=== PATIENT | female | born 1965 | race Caucasian/White ===

== ENCOUNTER 2019-11-24 22:02 | Inpatient (IN) | payer OTHER, SELFPAY ==
--- NOTE | 2019-11-24 22:05 | W.ED.LOWEXIN ---
HPI - Extremity Injury (Lower) General: Chief Complaint: Extremity Injury, Lower Stated Complaint: HIP PAIN Time Seen by Provider: 11/24/19 22:03 Source: patient Mode of arrival: ambulatory Limitations: no limitations History of Present Illness: HPI Narrative: Patient comes in today for complaints of injury to the right hip. Patient reports she went to get up out of bed and she stood up and her hip just gave away. Patient was brought in by ambulance for inability to stand on the hip. Patient appears well. Patient reports history of asthma and hypertension. Patient denies any other chronic illnesses. complaint: hip injury Review of Systems General: Reports: 10 or more systems reviewed and unremarkable except in HPI and below Musc: Reports: joint pain PFSH ED PFSH: Social History Smoking and tobacco status: never smoked Physical Exam Const: COMMON NORMALS: no acute distress and patient oriented x3 GENERAL APPEARANCE: cooperative HENMT: COMMON NORMALS: normocephalic, TM's normal bilaterally and Normal external nose present HEAD & SCALP: normal to inspection and normocephalic NOSE: Normal external nose present TYMPANIC MEMBRANE: TM's normal bilaterally MOUTH: Normal oral and palatal mucosa present THROAT: posterior oropharynx normal Eye: GENERAL EYE: appearance normal, both eyes and all related structures Neck/C-Spine: COMMON NORMALS: full ROM Lymph: LYMPHATIC: no lymphadenopathy noted Chest: COMMONS NORMALS: normal inspection of the chest Resp: COMMON NORMALS: normal respiratory effort EFFORT & INSPECTION: Yes able to speak in complete sentences Cardio: COMMON NORMALS: regular rate and regular rhythm RATE: regular rate RHYTHM: regular rhythm GI: COMMON NORMALS: non-tender : COMMON NORMALS: Yes no CVA tenderness BLADDER/KIDNEY EXAM: Yes no CVA tenderness Back/Pelvis: COMMON NORMALS: no CVA tenderness and thoracic and lumbar spine normal to inspection GENERAL BACK: Yes other (Palpation of the lower back elicited no pain.) Extremity: NARRATIVE EXTREMITY EXAM: Patient is unable to tolerate movement of the right lower extremity. Pulses are intact in the extremity. Tenderness is noted to the right groin. Neuro: COMMON NORMALS: patient oriented x3 and moves all extremities Psych: COMMON NORMALS: mental status grossly normal and cooperative Skin: COMMON NORMALS: no rashes or lesions noted GENERAL SKIN EXAM: no rashes or lesions noted Course ED course: 2249, x-ray was completed noted a femoral neck fracture on the x-ray discussed with with Dr. Small who recommended talking to orthopedics for consideration of surgical repair and admission. wjw [id number], discussed with Dr. Fernandez who agreed to consult on patient for repair of the right hip, femoral neck fracture. Dr. Small had talked with Dr. Clemens who agreed for admission. wjw Vital Signs: Vital signs: Vital Signs Temperature 97.8 F 11/24/19 22:07 Pulse Rate 93 11/24/19 22:30 Respiratory Rate 16 11/24/19 22:30 Blood Pressure 147/73 11/24/19 22:30 Pulse Oximetry 98 11/24/19 22:30 MDM - Extremity Injury (Lower) MDM Narrative: Medical decision making narrative: Patient comes in today for complaints of injury to her right hip. Patient reported that she tripped over a bag of fertilizer when she was pulling a chair backwards causing her to land on her left hip. Patient was unable to stand after the injury. And was transported to the ER by EMS. On exam patient has right groin tenderness on palpation, no pain of the lumbar spine on palpation. Distal pulses are intact and no significant swelling is noted to the distal leg. Patient is unable to lift leg from bed. Differential diagnosis includes fracture of the hip, contusion, sprain. X-ray showed a femoral neck fracture that is displaced. Patient needs admission to the hospital for surgical treatment of fracture. Reviewed this with patient who agreed to plan of care. 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
[2019-11-24 22:07] VITALS: BP 130/100; RESP 18; TEMP 36.6; BMI 23.4
--- NOTE | 2019-11-24 22:10 | XR_ITS ---
WS: [id number] PELVIS AND RIGHT HIP HISTORY: injury COMPARISON: 11/24/2019 CT. Right hip: Acute fracture involving the basicervical portion of the femoral neck with extension to th e subcapital region. There is mild impaction along the fracture line but otherwise no displacement. T here is mild increased lucency along the fracture site. No additional lytic areas are noted within the pelvis. XR/XR hip RT 2-3V wo/w pel* [id number] IMPRESSION: 1. Acute RIGHT femoral neck fracture involving the basicervical region and the subcapital region. Mild impaction. 2. Increased lucency along the superior fracture site. Lytic lesion is not exc luded. Evaluation for possible metastatic lesion should be considered.
[2019-11-24 22:30] VITALS: BP 147/73; PULSE 93; RESP 16; O2SAT 98
[2019-11-24] MEDS: ondansetron 2 mg/ML SDV 2 mL 4 MG IVP (22:45)
[2019-11-24] MEDS: morphine 4 mg/mL SDV 1 mL IVP ×2 (22:46→23:39)
--- NOTE | 2019-11-24 22:56 | ECG_ITS ---
Measurements Intervals [place] Rate: 88 P: 52 IL: 158 QRS: -3 QRSD: 93 T: 28 QT: 344 QTc: 416 SINUS RHYTHM No previous ECG available for comparison Electronically Signed On 11-25-2019 10:30:27 CDT by Bill Lopez MD [email or web address]
--- NOTE | 2019-11-24 22:56 | XR_ITS ---
WS: [id number] PORTABLE CHEST HISTORY: hip fracture COMPARISON: None available. Mild pulmonary hyperinflation. No pneumonia. Normal vasculature. No pleural effusion or pneumothorax. Cardiac size: Normal. Mediastinum/Aorta: Normal mediastinum. No osseous abnormality seen. XR/XR chest 1V portable [id number] IMPRESSION: Mild pulmonary hyperexpansion may be related to emphysema.
[2019-11-24 23:28] LABS: Basophils # 0.1 10^3/uL (0.0-0.1); Basophils % 0.5 %; Eosinophils # 0.2 10^3/uL (0.0-0.8); Eosinophils % 0.8 %; Hematocrit 43.2 % (37.0-47.0); Hemoglobin 13.4 g/dL (11.5-15.3); Lymphocytes # 2.1 10^3/uL (0.8-4.8); Lymphocytes % 11.7 %; Mean Corpuscular Hemoglobin 30.5 pg (28.0-34.0); Mean Corpuscular Volume 98.4 fL (81-99); Mean Platelet Volume 9.3 fL (7.4-10.4); Monocytes % 5.5 %; Neutrophils # 14.3 10^3/uL (1.8-7.7); Neutrophils % 80.7 %; Nucleated Red Blood Cells % 0 %; Platelet Count 345 10^3/cmm (130-400); Red Blood Count 4.39 10^6/uL (4.1-5.3); Red Cell Distribution Width 13.2 % (12.1-15.1); White Blood Count 17.8 10^3/uL (4.0-10.0)
--- NOTE | 2019-11-24 23:38 | PC.NURSE ---
care and report given to Hollis SANCHEZ
--- NOTE | 2019-11-24 23:41 | CTR_ITS ---
PROCEDURE INFORMATION: Exam: CT Right Lower Extremity Without Contrast, Hip Exam date and time: 11/24/2019 11:42 PM Age: 54 years old Clinical indication: Injury or trauma; Initial encounter; Blunt trauma; Right; Patient HX: Backwards fall - R hip FX TECHNIQUE: Imaging protocol: CT of the Right lower extremity without contrast was performed. Exam focused on the hip. Radiation optimization: All CT scans at this facility use at least one of these dose optimization techniques: automated exposure control; mA and/or kV adjustment per patient size (includes targeted exams where dose is matched to clinical indication); or iterative reconstruction. COMPARISON: CR XR hip RT 2-3V wo/w pel* [id number] 11/24/2019 10:33 PM RADIATION DOSE METRICS: Total DLP: 1142.42 mGy-cm FINDINGS: Bones/joints: There is a displaced right femoral neck fracture involving the subcapital portion of the neck posteriorly, extending through the basicervical portion anteriorly. The femoral head remains aligned with the intact acetabulum. The visible portion of the pelvis and sacrum is intact. Soft tissues: Visible intrapelvic soft tissues are unremarkable. No significant hematoma in the right thigh. CT/CT hip RT wo con* [id number] IMPRESSION: Displaced fracture of the right femoral neck. Radiation Dose CTDIVOL = (mGy): DLP = 1142.42 (mGy-cm)
[2019-11-24 23:43] VITALS: O2SAT 98
[2019-11-24 23:45] VITALS: BP 127/73
[2019-11-24 23:51] VITALS: BP 127/73
[2019-11-24 23:55] VITALS: BP 127/73
[2019-11-25] VITALS (34 sets, daily range): BP systolic 95–141; BP diastolic 59–88; PULSE 77–118; RESP 12–21; TEMP 36.4–36.9; O2SAT 89–100
[2019-11-25 00:38] LABS: Alanine Aminotransferase 17 U/L (0-33); Albumin Level 4.2 g/dL (3.5-5.2); Alkaline Phosphatase 100 IU/L (35-105); Anion Gap 18.3 (5-19); Blood Urea Nitrogen 15 mg/dL (6-20); Calcium 9.9 mg/dL (8.5-10.5); Carbon Dioxide 24 mmol/L (22-29); Chloride 97 mmol/L (98-107); Globulin 3.1 g/dL (1.3-4.6); Glomerular Filtration Rate 103.8 mL/min (90-130); Glucose 133 mg/dL (65-115); Osmolality Calculated 278 mOsm/kg (285-295); Potassium 4.3 mmol/L (3.5-5.1); Sodium 135 mmol/L (136-145); Total Bilirubin 0.2 mg/dL (0.15-1.2); Total Protein 7.3 g/dL (6.6-8.7)
[2019-11-25 00:39] LABS: Aspartate Amino Transferase 24 U/L (0-32)
--- NOTE | 2019-11-25 03:14 | P.HP_ITS ---
Providers/Chief Complaint Admitting Physician: Zita Hagan MD Chief Complaint: R CERVICAL FEMORAL NECK FX History of Present Illness Patti Saleh is a 54 year old female with PMH HTN and asthma who presented today to the hospital after suffering a mechanical fall at home when she tripped over some fertilizer bags. She was then unable to move her right leg. Hip X ray and CT show displaced fracture of the right femoral neck. she denies any c/o cough, chest pain, dyspnea, fever, nausea, vomiting or diarrhea, denies dysuria. Review of Systems General: Reports: 10 or more systems reviewed and unremarkable except in HPI and below Const: Denies: fever(s), chills or body aches Eyes: Denies: change in vision, blurry vision or photophobia ENMT: Denies: throat pain, enlarged tonsils, odynophagia, hoarseness or nasal congestion Card: Denies: chest pain, palpitations, irregular heart rhythm, edema, sw elling of feet/ankles, lightheadedness, pre-syncope, dyspnea on exertion or orthopnea Resp: Denies: dyspnea, productive cough, non-productive cough, wheezing, stridor, pain on inspiration, change in phlegm color, hemoptysis or chest congestion GI: Denies: abdominal pain, nausea, vomiting, hematemesis, coffee ground emesis, dysphagia, heartburn, diarrhea, constipation, GI cramping, change in stool character, hematochezia or melena : Denies: flank pain, difficulty voiding, dysuria, urinary frequency, urinary urgency, urinary hesitancy or hematuria Musc: Denies: neck pain, back pain, extremity pain, joint swelling, joint warmth or deformity Neuro: Denies: headache(s), numbness in extremities, weakness in extremities, sensory changes, difficulty walking, frequent falls, dizziness, vertigo, behavioral changes, Slurred speech present or seizure-like activity Psych: Denies: anxiety, depression, suicidal ideation or homicidal ideation Endo: Denies: polyuria, polydipsia, tired all the time, cold intolerance or hot flashes Chris/Lymph: Denies: easy bruising or easy bleeding Medications/Allergies Home Medications Medication Instructions Recorded Confirmed Last Taken Type Advair HFA 1 puff INHALATION DAILY 11/25/19 11/25/19 11/24/19 History cetirizine 10 mg PO DAILY 11/25/19 11/25/19 11/24/19 History lisinopril-hydrochlorothiazide 10 mg PO DAILY 11/25/19 11/25/19 11/24/19 History sertraline 50 mg PO DAILY 11/25/19 11/25/19 11/24/19 History Allergies Allergy/AdvReac Type Severity Reaction Status Date / Time No Known Allergies Allergy Verified 11/24/19 22:11 PFSH Acute PFSH: Social History Smoking and tobacco status: never smoked Vitals/I&O/Wt Last Vital Signs Temp 98.5 F 11/25/19 01:15 Pulse 84 11/25/19 01:15 Resp 18 11/25/19 01:15 BP 126/74 11/25/19 01:15 Pulse Ox 98 11/25/19 01:15 Weight last 48 hrs Weight 69.853 kg Physical Exam Narrative: EXAM NARRATIVE: GEN: Awake, alert and oriented, no acute distress CVS: S1S2 N RS: CTA B/L Abd: Soft, nt/nd , bs+ APPRENTICE JOCKEY: no focal neuro deficits Ext: TTP over right hip joint, no distal neurovascular deficits Urinary Catheter Management^: Kelly: Cath Placed During This Visit: yes Reason for Continuing Indwelling Catheter: Perioperative Use in Selected Surger ies Urinary Catheter Date of Insertion: 11/25/19 Urinary Catheter Time of Insertion: 00:43 Data : 11/24/19 23:10 11/25/19 00:01 A&P Assessment and plan (1) Fracture of hip: Status: Acute Qualifiers: Encounter type: initial encounter Fracture type: closed Laterality: right Qualified Code(s): S72.001A - Fracture of unspecified part of neck of right femur, initial encounter for closed fracture (2) Leukocytosis: Status: Acute (3) Hypertension: Status: Acute Additional A&P Information Admit to med/surg 1. Fracture of right femoral neck - sustained from mechanical fall - PAin is currently well controlled -prn morphine and ibuprofen for pain control -Orthopedics consult with Dr. Valentino 2. Hypertension: Patient does not recall name of her medications, will try to obtain from her family 3. leukocytosis, in the absence of fever or any other localizing signs or symptoms of infection likely related to stress response from acute fracture. CXR is without infiltrates. Will check UA. Surgical prophylaxis per orthopedics team 4. H/o asthma, not currently exacerbated. Prn albuterol inhaler Full code DVT ppx: heparin, hold prior to surgery Attestations Medical Necessity Statement*: Anticipate >2 midnight admission for hip fracture and surgical repair Coding Level of Care Code Acute Community Health Educator for [facility] Diagnoses Fracture of hip S72.001A Encounter type: initial encounter Fracture type: closed Laterality: right Leukocytosis D72.829 Hypertension I10
[2019-11-25 03:45] LABS: Add Urine Microscopic? NO
[2019-11-25] MEDS: dextrose 5%-sod chloride 0.9% 1,000 ML 75 ML IV (03:45)
[2019-11-25] MEDS: morphine 4 mg/mL SDV 1 mL 2 MG IVP (03:45)
[2019-11-25 03:48] LABS: Bilirubin Urine Neg (NEGATIVE); Blood Urine Neg (Negative); Glucose Urine UA Norm (Normal); Ketones Urine Negative (Negative); Leukocyte Esterase Urine Negative (Negative); Nitrate Urine Negative (Negative); Protein Urine Neg (Negative); Specific Gravity, Urine 1.005 (1.005-1.030); Urine Appearance Clear (CLEAR); Urine Color Yellow (Yellow); Urobilinogen Urine Norm (Negative); pH Urine 7 (5-7)
--- NOTE | 2019-11-25 03:51 | PC.NURSE ---
verified home meds with spouse. Given morphine 2 mg at this time for pain verified fluid order with jacques mas.
--- NOTE | 2019-11-25 08:03 | P.ANESASSM_ITS ---
Pre-Anesthetic Assessment Pre-Anesthetic Assessment: Height/Weight: Height 1.73 m Weight 69.853 kg Temp Pulse Resp BP Pulse Ox 98.5 F 94 18 109/68 95 11/25/19 07:09 11/25/19 07:09 11/25/19 07:09 11/25/19 07:09 11/25/19 07:09 Proposed Procedure: Operation Date: 11/25/19 08:45 Proposed Procedures p Hemiarthroplasty Hip(Right) - Kavita Valentino MD Last intake: Intake Last Liquid Date 11/24/19 Last Solid Date 11/24/19 Social: Social History: No alcohol and No tobacco Exam: Pre-Anes Outpt Exam: alert, oriented x 3, clear to auscultation bi laterally and regular rate & rhythm Airway: Submandibular: WNL Cervical ROM: WNL MP: 2 Dentition: Other (teeth ok) History/ROS: No significant history except as noted Pulmonary: Pulmonary: Asthma (mod) and GIL CV/HEM: CV/HEM: HTN : : None reported Hepatic: Hepatic: None reported GI: GI: None reported Metabolic: Metabolic: None reported Musc/skel: Musc/skel: None reported Neuropsych: Neuropsych: Depression Anesthetic Plan: ASA status: 2 Anesthesia: Anesthesia Evaluation and General Risk of > 500 ml blood loss (7ml/kg in children): Yes, adequate IV access and fluids planned Meds/Allergies Current Medications: Current Medications Generic Name Dose Route Start Last Admin Trade Name Freq PRN Reason Stop Dose Admin Dextrose/Sodium Ch loride 1,000 mls @ 75 ml s/hr 11/25/19 03:15 11/25/19 03:45 Dextrose 5%-Sod Chloride 0.9% IV 75 mls/hr .[id number] GEE Administration Morphine Sulfate 2 mg 11/25/19 03:06 11/25/19 03:45 Morphine IVP 2 mg Q4H PRN Administration SEVERE PAIN PFSH Anesthesia PFSH: Medical History (Updated 11/25/19 @ 08:13 by Kavita Valentino MD) Asthma Hypertension Social History Smoking and tobacco status: never smoked Data Anesthesia CBC & Chem 7: 11/24/19 23:10 11/25/19 00:01 Other Labs: Laboratory Results - last 48 hr 11/24/19 11/25/19 11/25/19 23:10 00:01 01:20 WBC 17.8 H RBC 4.39 Hgb 13.4 Hct 43.2 MCV 98.4 MCH 30.5 MCHC 31.0 RDW 13.2 Plt Count 345 MPV 9.3 Neut % (Auto) 80.7 Lymph % (Auto) 11.7 [place] % (Auto) 5.5 Eos % (Auto) 0.8 Baso % (Auto) 0.5 Neut # (Auto) 14.3 H Lymph # (Auto) 2.1 [place] # (Auto) 1.0 H Eos # (Auto) 0.2 Baso # (Auto) 0.1 Nucleated RBC % (auto) 0 Nucleated RBCs # 0.0 Sodium 135 L Potassium 4.3 Chloride 97 L Carbon Dioxide 24 Anion Gap 18.3 BUN 15 Creatinine 0.6 GFR Calculation 103.8 Glucose 133 H Calculated Osmolality 278 L Calcium 9.9 Total Bilirubin 0.2 AST 24 ALT 17 Alkaline Phosphatase 100 Total Protein 7.3 Albumin 4.2 Globulin 3.1 Urine Color Yellow Urine Appearance Clear Urine pH 7 Ur Specific [place] 1.005 Urine Protein Neg Urine Glucose (UA) Norm Urine Ketones Negative Urine Blood Neg Urine Nitrate Negative Urine Bilirubin Neg Urine Urobilinogen Norm Ur Leukocyte Esterase Negative Cardiac Studies: No Data to Display
--- NOTE | 2019-11-25 08:06 | PM.CONSULT ---
Providers/Reason For Consult Consulting Physican/Specialty*: Dr. Kavita Valentino - Orthopedics Reason for Consult*: Right subcapital hip fracture Requesting Physcian: Dr. Sidney Small - Emergency department Attending Physician: Zita Hagan MD History of Present Illness History of Present Illness Patti Saleh is a 54 year old female who presented to the emergency department after a fall at home. She tripped over fertilizer bags and fell onto her right side suffering the above injury. Upon admission to the emergency department, she was noted to have a past medical history consistent with asthma and hypertension without other significant past medical history. Review of Systems Const: Denies: fever(s) or chills Eyes: Denies: change in vision Card: Reports: dyspnea on exertion; Denies: chest pain Resp: Reports: dyspnea (With exertion); Denies: productive cough GI: Denies: abdominal pain Skin/Breast: Denies: erythema or changes in skin color Neuro: Denies: numbness in extremities Psych: Denies: anxiety or depression Chris/Lymph: Denies: easy bruising or easy bleeding Meds/Allergies Home Medications and Allergies Home Medications Medication Instructions Recorded Confirmed Last Taken Type Advair HFA 1 puff INHALATION DAILY 11/25/19 11/25/19 11/24/19 History cetirizine 10 mg PO DAILY 11/25/19 11/25/19 11/24/19 History lisinopril-hydrochlorothiazide 10 mg PO DAILY 11/25/19 11/25/19 11/24/19 History sertraline 50 mg PO DAILY 11/25/19 11/25/19 11/24/19 History Allergies Allergy/AdvReac Type Severity Reaction Status Date / Time No Known Allergies Allergy Verified 11/24/19 22:11 Current Medications Current Medications Generic Name Dose Route Start Last Admin Trade Name Freq PRN Reason Stop Dose Admin Dextrose/Sodium Chloride 1,000 mls @ 75 mls/hr 11/25/19 03:15 11/25/19 03:45 Dextrose 5%-Sod Chloride 0.9% IV 75 mls/hr .[id number] GEE Administration Morphine Sulfate 2 mg 11/25/19 03:06 11/25/19 03:45 Morphine IVP 2 mg Q4H PRN Administration SEVERE PAIN PFSH Acute PFSH: Medical History Asthma Depression Hypertension Social History Smoking and tobacco status: never smoked Vitals/I&O/Wt Last Vital Signs Temp 98.5 F 11/25/19 07:09 Pulse 94 11/25/19 07:09 Resp 18 11/25/19 07:09 BP 109/68 11/25/19 07:09 Pulse Ox 95 11/25/19 07:09 11/24/19 11/25/19 11/25/19 22:59 06:59 14:59 Output Total 400 / 400 Balance -400 / -400 Weight last 48 hrs Weight 154 lb Physical Exam Const: COMMON NORMALS: no acute distress, average body habitus, patient oriented x3 and alert GENERAL APPEARANCE: cooperative and comfortable ORIENTATION/CONSCIOUSNESS: Yes awake HENMT: COMMON NORMALS: normocephalic and atraumatic HEAD & SCALP: normocephalic and atraumatic Eye: GENERAL EYE: appearance normal, both eyes and all related structures Chest: COMMONS NORMALS: normal inspection of the chest Resp: COMMON NORMALS: normal respiratory effort EFFORT & INSPECTION: Yes able to speak in complete sentences and Yes symmetric chest movement Extremity: RIGHT LOWER EXTREMITY: Yes hip joint Right hip: Yes inspection (There is no significant ecchymosis.), Yes palpation (Tenderness to palpation), Yes ROM (Tender with any range of motion) and Yes neurovascular exam (Intact to sensory and motor function) Neuro: COMMON NORMALS: patient oriented x3 SENSORIUM/ORIENTATION: Yes alert Psych: COMMON NORMALS: mental status grossly normal APPEARANCE: Yes grossly normal ATTITUDE: Yes calm and Yes engaged ATTENTION/CONCENTRATION: Yes attention grossly intact Skin: COMMON NORMALS: no rashes or lesions noted GENERAL SKIN EXAM: no rashes or lesions noted Urinary Catheter Management^: Kelly: Cath Placed During This Visit: yes Reason for Continuing Indwelling Catheter: Perioperative Use in Selected Surgeries Urinary Catheter Date of Insertion: 11/25/19 Urinary Catheter Time of Insertion: 00:43 Data Imaging^: Xray Ortho: I personally reviewed and interpreted this imaging study as follows: My impression: AP pelvis and AP and lateral of the patient's right hip are reviewed. These images demonstrate a displaced subcapital hip fracture. On the AP pelvis, there is some concern of a lytic looking region or a void in the superior aspect of the neck. For this reason, I have asked for a CT scan. CT Abd/Pel: I personally reviewed and interpreted this imaging study as follows: My impression: CT scan is reviewed. The void which was visualized on the AP pelvis imaging is not apparent on the CT scan. The CT demonstrates a displaced subcapital hip fracture consistent with the x-ray findings. A&P Assessment and plan (1) Subcapital fracture of right hip: Patient fell at home with no complaints of dizziness or other reason for her fall other than a mechanical fall tripping over some fertilizer bags at her house. The patient presented to the emergency department with inability to ambulate and severe pain in the right lower extremity with any range of motion. Findings on x-ray included a displaced subcapital hip fracture. There was some irregularity along the superior border of the fracture that almost appeared to be a void. Therefore, I did order a CT scan for preoperative evaluation to assure there was not a pathological component to this fracture particularly given the patient's young age and state of health. CT scan as noted above was negative for lytic lesion, but positive for cysts subcapital hip fracture. Patient therefore was admitted to the medical service given her history of asthma, depression, and hypertension. She will undergo bipolar hip arthroplasty. Risks and complications are discussed with her. Consents were signed Status: Acute Consult Attestations Medical Necessity Statement: Patient will require inpatient admission for optimization and evaluation of her hip fracture with subsequent surgical intervention and medical management. Coding Level of Care Code Acute Animation Producer for [facility] Fwd Exam Comprehensive Diagnoses Subcapital fracture of right hip S72.011A
[2019-11-25] MEDS: CELEcoxib 200 mg Capsule 400 MG PO (08:53)
[2019-11-25] MEDS: sodium chloride 0.9% 1,000 ML 30 ML IV (08:56)
--- NOTE | 2019-11-25 09:16 | PC.CHAP ---
Pastoral Care Encounter/Spiritual Assessment Type of Contact [] Declined brisket puller visit [] Patient/Family/Request visit [] Outpatient visit [] Follow-up visit [] Physician referral [] Code/Alert [x] Routine visit [] Staff referral [] Actively dying [] Patient sleeping [] Family support [] [x] Out of room [] Palliative care [] [] Receiving care in room [] Pre-surgical visit [] Trauma [] Long length of stay [] ICU visit [] Other: Relational/Emotional Strength [] Patient feels connected with others/family/visitors/staff [] Distress [] Loneliness/isolation [] Abandonment Spirituality of Patient [] Person of Ora [] Attends Scientologist of their Ora [] Believes in Prayer [] Reads Bible or Mandaen materials [] There are Spiritual issues to be addressed Copy Chaser Interventions [] Prayer [] Active listening [] Non-anxious presence [] Spiritual/emotional support [] Crisis/trauma care [] Spiritual counseling [] Bereavement support [] Provided bereavement packet [] Provided Bible/devotional materials [] Provided toy/stuffed animal, coloring book to patient or family member [] Provided Communion [] Anointing/[place] [] Salvation [x] Completed spiritual assessment [] Other: Impact on Illness or Injury [] Angry [] Fearful [] Anxious [] Often cries [] Exhaustion [] Unable to work [] Unable to attend religion [] Unable to walk/stand [] Unable to read [] Unable to drive [] Unable to eat/drink [] Unable to sleep [] Unable to be with family [] Patient intubated [] Other: Summary Time spent with patient
[2019-11-25] MEDS: ceFAZolin 1,000 mg SDV 1000 MG IRRIGATION (09:54)
[2019-11-25] MEDS: vancomycin 1,000 MG SDV 1000 MG XX (09:56)
--- NOTE | 2019-11-25 11:03 | XR_ITS ---
WS: [id number] PELVIS: AP VIEW SUBMITTED HISTORY: Status post bipolar hip arthroplasty COMPARISON: 11/24/2019 Intraoperative RIGHT hip arthroplasty. Soft tissue changes from the recent surgery. XR/XR pelvis 1-2V* [id number] IMPRESSION: Satisfactory positioning of the RIGHT hip arthroplasty.
--- NOTE | 2019-11-25 11:05 | P.OP_ITS ---
Operative Report Date of procedure: November 25, 2019 Pre-op Diagnosis: Right Subcapital Hip Fracture Post-op diagnosis: same Post-op Findings: Subcapital displaced right hip fracture Procedure Done: Right bipolar hip arthroplasty utilizing the following components: The Wheeler Accolade II hip system with a size 5 x 127 degree neck angle hip stem and a universal bipolar head component size 45 mm outer diameter by 28 mm inner diameter a +0 offset by 28 mm femoral head Specimens removed/disposition: Femoral head sent to pathology Pathology: Femoral head sent for microscopic evaluation Surgeon: Kavita Valentino Professional Skater: [facility] OR technicians Anesthesia: General (Intubated) Estimated blood loss (mL): 100 IV fluids (mL): 1,000 Urine output (mL): 100 Complications: None Findings: Following the procedure the hip was stable to external rotation. It was stable at 90 degrees of flexion with 80 degrees of internal rotation. It was also stable to toe hang and to 90 degrees of flexion with 30 degrees of adduction and 60 degrees of internal rotation Condition: stable Disposition: PACU (Then to floor) Brief History: This 54-year-old woman was in her usual state of health when she fell in her home suffering the above injury. Patient presented to the emergency room with inability to ambulate and pain in the right hip. Images demonstrated a right subcapital hip fracture. She was admitted for definitive care. Risks and complications of surgery were discussed with the patient. She understood and consented for the above procedure. Procedure: The patient was brought to the operating theater, and after undergoing adequate general anesthesia was transferred to the operating room table. The patient was placed in the full lateral position and held in place with the pegboard. Patient's right lower extremity was draped free and was subsequently prepped and further draped free. A surgical pause was performed prior to commencement of the surgical procedure. During the surgical pause, we confirmed the site and side of surgery as well as availability of equipment. Additionally, we confirmed preoperative surgical markings and administration of preoperative prophylactic antibiotic, Ancef 2 g. X-rays are also reviewed during this time. Following the surgical pause, an incision was made centering over the greater trochanter continuing proximally and distally as necessary to allow access to the hip joint. Dissection continues to skin and soft tissue using scalpel. Incision was obtained using electrocautery. Tensor fascia anu was identified and incised longitudinally. Sciatic nerve was identified and protected throughout the surgical procedure. A Charnley U retractor was placed with care being taken to protect the sciatic nerve during placement. The hip was internally rotated. Piriformis muscle was then identified, tagged, and subsequently incised from the posterior aspect of the hip joint. The remaining short external rotators were also incised. These were then elevated off the capsule and the capsule was entered in a T-type fashion. Each side of the capsule was then tagged. The proximal femur was brought into an appropriate position of the femoral neck osteotomy was accomplished. This was in appropriate position for placement of the prosthetic component. Femoral head was then removed from the acetabulum utilizing a corkscrew. It was subsequently measured. The appropriate size trial was chosen. The size 45 mm trial fit nicely. A 46 mm as well as a 44 mm was also trialed but neither of these fit as nicely as the 45 mm. Therefore size 45 mm was the chosen size for final implantation. Femoral technical operations manager was then placed and attention was directed to the proximal femur. Initially, the proximal femur was addressed with a box chisel, and this was followed by a canal finder and subsequently broaches. The hip was broached to a size 5 Accolade II. Size 5 broach was noted to fit nicely and have good fit and fill. Therefore this was to be the chosen component. Trial reduction was accomplished with a 45 mm bipolar cup shell and a +0 mm offset femoral head. With this, the above-noted stabilities were accomplished. This was felt to be appropriate and therefore trial components were removed and the hip was irrigated. Acetabulum was evaluated for any loose bodies or other soft tissues requiring resection. We then prepared for implantation. The size 5 Accolade II 127 degree neck angle femoral stem was impacted into position. This was placed without difficulty. Onto this was placed the construct of the 45 mm outer diameter bipolar head with a 28 mm inner diameter, and the 28 mm by +0 mm offset femoral head was inserted into this outer bipolar head. This was placed onto the trunnion of the femoral component. It was impacted into position and was pulled upon to assure that there was no dissociation. Once again, the hip was irrigated and suctioned dry and was reduced. We then irrigated the hip further with 20 mL of Betadine mixed into 500 mL of normal saline. This was allowed to remain in the wound for approximately 3 minutes. It was then suctioned dry and irrigated with normal saline. This was suctioned dry again and closure was accomplished with 0 Vicryl in the capsular tissues followed by reattachment of the piriformis with 0 Vicryl. Additionally, the tensor was closed with 0 Vicryl in an interrupted fashion. Subcutaneous tissues were closed with a combination of 0 Vicryl and 2-0 Monocryl. Skin was closed with 3-0 Monocryl. This was followed by Exofin and Steri-Strips. A sterile dressing was placed consisting of Telfa and Tegaderm. The patient was returned the Recovery Room in satisfactory condition. There were no complications. The patient will be discharged to the floor for postoperative rehabilitation and pain management.
--- NOTE | 2019-11-25 11:28 | SUR.PHASEI ---
1118 PATIENT TO PACU AT THIS TIME FROM OR. RR EVEN AND UNLABORED. NASAL TRUMPET IN PLACE. SPO2 97% ON SIMPLE MASK AT 8L. DRESSING TO RIGHT HIP, CDI, RIGHT PEDAL PULSE, PALPATED AND MARKED. ABDUCTOR PILLOW IN PLACE. LUO CATH SECURED TO LEFT LEG, DRAINING CLEAR, YELLOW URINE.
--- NOTE | 2019-11-25 11:31 | SUR.PHASEI ---
1122 NASAL TRUMPET REMOVED. SPO2 98% ON SIMPLE MASK AT 8L.
[2019-11-25] MEDS: ondansetron 2 mg/ML SDV 2 mL 4 MG IVP (11:32)
--- NOTE | 2019-11-25 12:03 | SUR.PHASEI ---
1151 PATIENT TO MED SURG AT THIS TIME FROM PACU. DRESSING TO RIGHT HIP, CDI WITH FIRST ICE IN PLACE. PATIENT DENIES NAUSEA, TOLERATING ICE CHIPS. A/OX3. REPORTS PAIN SORENESS
--- NOTE | 2019-11-25 16:54 | PM.PN ---
Subjective Subjective: Interval history: She is seen and examined upon her return from the OR. Resting quietly in bed, in good spirits, abductor pillow in place, Kelly catheter with approximately 500 mL urine output. Per nursing staff seems to desaturate slightly while sleeping but compensates quickly. Currently on room air. Medications: Reviewed: Yes Medication Review Details: Active Medications Generic Name Dose Route Start Last Admin Trade Name Freq PRN Reason Stop Dose Admin Acetaminophen 1,000 mg 11/27/19 13:00 Tylenol PO Q8H GEE Albuterol Sulfate 2.5 mg 11/25/19 03:39 Albuterol INHALATION Q4H.RESPIRATORY P RN SHORTNESS OF YANETH TH Aspirin 325 mg 11/26/19 09:00 Aspirin Ec PO DAILY [facility] Calcium Carbonate 1,000 mg 11/25/19 18:00 Tums PO BID GEE Celecoxib 200 mg 11/25/19 18:00 Celebrex PO Q12H [facility] Chlorhexidine Gluc bettie 30 ml 11/25/19 13:00 11/25/19 13:31 Perigard MUCOUS MEM Not Given QID [facility] Hydrochlorothiazid e 12.5 mg 11/26/19 09:00 Hctz PO DAILY [facility] Dextrose/Sodium Ch loride 1,000 mls @ 75 ml s/hr 11/25/19 03:15 11/25/19 03:45 Dextrose 5%-Sod Chloride 0.9% IV 75 mls/hr .[id number] GEE Administration Cefazolin Sodium/D extrose 2 gm in 50 mls @ 100 mls/hr 11/25/19 17:00 Kefzol IV 11/26/19 09:29 Q8H GEE Protocol Acetaminophen 1,000 mg in 100 m ls @ 400 mls/hr 11/25/19 13:00 11/25/19 13:26 Ofirmev IV 11/26/19 05:14 400 mls/hr Q8H GEE Administration Ibuprofen 400 mg 11/25/19 03:06 Motrin PO Q8H PRN mild/mod pain or temp >/= 101 Ipratropium Bromid e 0.5 mg 11/25/19 08:31 Atrovent Neb INHALATION ONCE PRN WHEEZING Lisinopril 10 mg 11/26/19 09:00 Prinivil PO DAILY [facility] Morphine Sulfate 2 mg 11/25/19 03:06 11/25/19 03:45 Morphine IVP 2 mg Q4H PRN Administration SEVERE PAIN Multivitamins Ther apeutic 1 tab 11/26/19 09:00 Multivitamin Tab PO DAILY [facility] Mupirocin 1 applic 11/25/19 18:00 Bactroban NASAL 11/30/19 17:59 BID [facility] Naloxone HCl 0.1 mg 11/25/19 11:41 Narcan IVP Q2M PRN Respiratory rate less than 8. Ondansetron HCl 4 mg 11/25/19 01:15 Zofran IVP Q6H PRN NAUSEA AND VOMITI NG Ondansetron HCl 4 mg 11/25/19 11:41 Zofran IVP Q6H PRN NAUSEA AND VOMITI NG Oxycodone HCl 5 mg 11/25/19 11:41 Oxycodone Ir PO Q4H PRN MODERATE PAIN Polysaccharide Iro n Complex 150 mg 11/25/19 18:00 Ferrex PO BIDWM [facility] Senna/Docusate Sod ium 2 tab 11/25/19 18:00 Senna-S PO BID [facility] Sertraline HCl 50 mg 11/25/19 21:00 Zoloft PO BEDTIME [facility] Vitamin D 1,000 unit 11/26/19 09:00 Vitamin D3 PO DAILY [facility] No Known Allergies Allergy (Verified 11/24/19 22:11) Vitals/I&O/Wt Last Vital Signs Temp 97.9 F 11/25/19 15:00 Pulse 91 11/25/19 15:00 Resp 18 11/25/19 15:00 BP 115/73 11/25/19 15:00 Pulse Ox 96 11/25/19 15:00 11/25/19 11/25/19 11/25/19 06:59 14:59 22:59 Intake Total 1260 / 1260 Output Total 400 / 400 300 / 300 Balance -400 / -400 960 / 960 Weight last 48 hrs Weight 69.853 kg Physical Exam Const: COMMON NORMALS: no acute distress, patient oriented x3 and alert GENERAL APPEARANCE: cooperative and comfortable ORIENTATION/CONSCIOUSNESS: Yes awake HENMT: COMMON NORMALS: normocephalic, atraumatic, hearing grossly normal bilaterally and moist oral mucous membranes HEAD & SCALP: normocephalic and atraumatic Eye: COMMON NORMALS: Equal, round and reactive pupils present, EOMs intact bilaterally and conjunctivae normal CONJUNCTIVA: Yes conjunctivae normal PUPIL: Yes Equal, round and reactive pupils present Neck/C-Spine: COMMON NORMALS: full ROM GENERAL: Yes normal visual inspection and Yes trachea midline Chest: CHEST: Yes Symmetrical chest wall rise Resp: COMMON NORMALS: normal respiratory effort, No retractions, No use of accessory muscles and clear to auscultation bilaterally EFFORT & INSPECTION: Yes able to speak in complete sentences, Yes symmetric chest movement and No tachypneic AUSCULTATION: clear to auscultation bilaterally OTHER: -on RA Cardio: COMMON NORMALS: regular rate, regular rhythm, S1 normal heart sound present, S2 normal heart sound present and No murmurs present (Cardio) RATE: regular rate RHYTHM: regular rhythm HEART SOUNDS: S1 normal heart sound present and S2 normal heart sound present GI: COMMON NORMALS: Normal to inspection, nondistended, normoactive bowel sounds present, Soft to palpation and non-tender PALPATION: Yes Soft to palpation : BLADDER/KIDNEY EXAM: Yes catheter in place Catheter type (Female): urethral Extremity: COMMON NORMALS: normal to inspection, full ROM, no clubbing, cyanosis or edema and no pedal edema NARRATIVE EXTREMITY EXAM: -R lateral hip: clean dressing in place, soft to palpation, no hematoma -Abductor pillow in place between both lower extremities -neurovascularly intact Neuro: COMMON NORMALS: patient oriented x3, moves all extremities, no focal motor deficits and no sensory deficits noted SENSORIUM/ORIENTATION: Yes alert Psych: COMMON NORMALS: mental status grossly normal, Normal thought process present, cooperative, normal affect and speech normal SPEECH: Yes normal speech THOUGHT PROCESS: Normal thought process present Skin: COMMON NORMALS: no rashes or lesions noted, no jaundice, no petechiae and no mottling GENERAL SKIN EXAM: no rashes or lesions noted Urinary Catheter Management^: Kelly: Cath Placed During This Visit: yes Urethral Indwelling: Yes Reason for Continuing Indwelling Catheter: Perioperative Use in Selected Surgeries Urinary Catheter Date of Insertion: 11/25/19 Urinary Catheter Time of Insertion: 00:43 Data : 11/24/19 23:10 11/25/19 00:01 Micro: Microbiology 11/25/19 01:20 MRSA Culture - Final Nose A&P Assessment and plan (1) Subcapital fracture of right hip: -noted displaced fracture of right femoral neck on imaging secondary to mechanical fall (tripped over fertilizer bags) -s/p right bipolar hip arthroplasty done earlier today by Dr. Valentino -EBL-100 mL; monitor H/H post-op -Kelly catheter in place, anticipate removal tomorrow -pain control as needed -PT/OT evaluations -fall precautions -regular diet as tolerated -bowel regimen -IS Status: Acute Qualifiers: Encounter type: initial encounter Fracture type: closed Qualified Code(s): S72.011A - Unspecified intracapsular fracture of right femur, initial encounter for closed fracture (2) Hypertension: -VSS; continue to monitor -continue oral antihypertensives Status: Chronic Qualifiers: Hypertension type: essential hypertension Qualified Code(s): I10 - Essential (primary) hypertension (3) Depression: Status: Chronic Qualifiers: Depression Type: unspecified Qualified Code(s): F32.9 - Major depressive disorder, single episode, unspecified (4) Leukocytosis: -noted leukocytosis with neutrophilic predominance -no infectious etiology: UA negative, CXR unremarkable, afebrile -continue to trend WBC Status: Acute Qualifiers: Leukocytosis type: unspecified Qualified Code(s): D72.829 - Elevated white blood cell count, unspecified Additional A&P Information -regular diet as tolerated -DVT ppx with SCDs/foot pumps, ASA 325 mg -Dispo: home with HH -Code status: FULL code Attestations Medical Necessity Statement*: Patient requires hospitalization for continued post-op care following her right bipolar hip arthroplasty for displaced fracture of right femoral neck. Time Spent in Patient Care: Greater than 35 minutes (>than 50% of time spent in counselling and/or direct pt care on unit). 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
[2019-11-25] MEDS: calcium carbonate 500 mg Chew Tablet 1000 MG PO (17:45)
[2019-11-25] MEDS: iron polysaccharide complex 150 mg Capsule PO (17:46)
[2019-11-25] MEDS: sennosides-docusate Tablet 2 TAB PO (17:46)
[2019-11-25] MEDS: chlorhexidine gluconate 0.12% Btl 473 mL 30 ML MUCOUS MEM ×2 (17:47→20:20)
[2019-11-25] MEDS: CELEcoxib 200 mg Capsule PO (17:47)
[2019-11-25] MEDS: sodium chloride 0.9% 1,000 ML 75 ML IV (20:20)
[2019-11-25] MEDS: sertraline 50 mg Tablet PO (20:21)
[2019-11-26] VITALS (7 sets, daily range): BP systolic 95–111; BP diastolic 56–69; PULSE 87–100; RESP 18; TEMP 36.7–37.1; O2SAT 92–96
[2019-11-26] MEDS: CELEcoxib 200 mg Capsule PO (05:18)
[2019-11-26] MEDS: sodium chloride 0.9% 1,000 ML 75 ML IV (05:18)
[2019-11-26 05:29] LABS: Basophils % 0.2 %; Eosinophils % 0.3 %; Hemoglobin 9.9 g/dL (11.5-15.3); Lymphocytes # 2.3 10^3/uL (0.8-4.8); Lymphocytes % 21.8 %; Mean Corpuscular HGB Conc 31.9 g/dL (30.0-36.0); Mean Corpuscular Hemoglobin 30.8 pg (28.0-34.0); Mean Corpuscular Volume 96.6 fL (81-99); Mean Platelet Volume 9.7 fL (7.4-10.4); Monocytes % 9.4 %; Neutrophils # 7.2 10^3/uL (1.8-7.7); Neutrophils % 67.8 %; Nucleated Red Blood Cells % 0 %; Platelet Count 299 10^3/cmm (130-400); Red Blood Count 3.21 10^6/uL (4.1-5.3); Red Cell Distribution Width 13.6 % (12.1-15.1); White Blood Count 10.6 10^3/uL (4.0-10.0)
[2019-11-26 05:57] LABS: Anion Gap 13.7 (5-19); Blood Urea Nitrogen 9 mg/dL (6-20); Calcium 8.1 mg/dL (8.5-10.5); Carbon Dioxide 26 mmol/L (22-29); Chloride 105 mmol/L (98-107); Glomerular Filtration Rate 128.1 mL/min (90-130); Glucose 107 mg/dL (65-115); Osmolality Calculated 288 mOsm/kg (285-295); Potassium 3.7 mmol/L (3.5-5.1); Sodium 141 mmol/L (136-145)
[2019-11-26] MEDS: chlorhexidine gluconate 0.12% Btl 473 mL 30 ML MUCOUS MEM ×2 (07:41→12:22)
[2019-11-26] MEDS: iron polysaccharide complex 150 mg Capsule PO (07:41)
[2019-11-26] MEDS: aspirin 325 mg EC Tablet PO (07:41)
[2019-11-26] MEDS: cholecalciferol (vitamin D3) 1,000 unit Tablet 1000 UNIT PO (07:41)
[2019-11-26] MEDS: multivitamin therapeutic Tablet 1 TAB PO (07:41)
[2019-11-26] MEDS: sennosides-docusate Tablet 2 TAB PO (07:41)
[2019-11-26] MEDS: calcium carbonate 500 mg Chew Tablet 1000 MG PO (07:41)
--- NOTE | 2019-11-26 11:54 | P.PN_ITS ---
Subjective Subjective: Interval history: Low normal blood pressure this morning, noted drop in hemoglobin from 13.4->9.9, decreased leukocytosis, normal renal function. Had 1300 mL urine output overnight, Kelly catheter discontinued this morning. Afebrile. Did very well with physical therapy today ambulating with walker. Has voided since removal of Kelly catheter. She is POD # 1 s/p R hip b ipolar arthroplasty. Morphine 2 mg IV x 1 dose given in terms of PRN pain meds; pain seems to be well controlled with oral analgesics. Will discontinue IV fluid hydration as she has good oral intake. Medications: Reviewed: Yes Medication Review Details: Active Medications Generic Name Dose Route Start Last Admin Trade Name Freq PRN Reason Stop Dose Admin Acetaminophen 1,000 mg 11/27/19 13:00 Tylenol PO Q8H GEE Albuterol Sulfate 2.5 mg 11/25/19 03:39 Albuterol INHALATION Q4H.RESPIRATORY P RN SHORTNESS OF YANETH TH Aspirin 325 mg 11/26/19 09:00 11/26/19 07:41 Aspirin Ec PO 325 mg DAILY GEE Administration Calcium Carbonate 1,000 mg 11/25/19 18:00 11/26/19 07:41 Tums PO 1,000 mg BID GEE Administration Celecoxib 200 mg 11/25/19 18:00 11/26/19 05:18 Celebrex PO 200 mg Q12H GEE Administration Chlorhexidine Gluc bettie 30 ml 11/25/19 13:00 11/26/19 07:41 Perigard MUCOUS MEM 30 ml QID GEE Administration Hydrochlorothiazid e 12.5 mg 11/26/19 09:00 11/26/19 07:42 Hctz PO Not Given DAILY GEE Sodium Chloride 1,000 mls @ 75 ml s/hr 11/25/19 20:00 11/26/19 05:18 Sodium Chloride 0.9% IV 75 mls/hr .[id number] GEE Administration Ibuprofen 400 mg 11/25/19 03:06 Motrin PO Q8H PRN mild/mod pain or temp >/= 101 Ipratropium Bromid e 0.5 mg 11/25/19 08:31 Atrovent Neb INHALATION ONCE PRN WHEEZING Lisinopril 10 mg 11/26/19 09:00 11/26/19 09:03 Prinivil PO Not Given DAILY GEE Morphine Sulfate 2 mg 11/25/19 03:06 11/25/19 03:45 Morphine IVP 2 mg Q4H PRN Administration SEVERE PAIN Multivitamins Ther apeutic 1 tab 11/26/19 09:00 11/26/19 07:41 Multivitamin Tab PO 1 tab DAILY GEE Administration Mupirocin 1 applic 11/25/19 18:00 11/26/19 07:52 Bactroban NASAL 11/30/19 17:59 Not Given BID GEE Naloxone HCl 0.1 mg 11/25/19 11:41 Narcan IVP Q2M PRN Respiratory rate less than 8. Ondansetron HCl 4 mg 11/25/19 11:41 Zofran IVP Q6H PRN NAUSEA AND VOMITI NG Oxycodone HCl 5 mg 11/25/19 11:41 Oxycodone Ir PO Q4H PRN MODERATE PAIN Polysaccharide Iro n Complex 150 mg 11/25/19 18:00 11/26/19 07:41 Ferrex PO 150 mg BIDWM GEE Administration Senna/Docusate Sod ium 2 tab 11/25/19 18:00 11/26/19 07:41 Senna-S PO 2 tab BID GEE Administration Sertraline HCl 50 mg 11/25/19 21:00 11/25/19 20:21 Zoloft PO 50 mg BEDTIME GEE Administration Vitamin D 1,000 unit 11/26/19 09:00 11/26/19 07:41 Vitamin D3 PO 1,000 unit DAILY GEE Administration No Known Allergies Allergy (Verified 11/24/19 22:11) Vitals/I&O/Wt Last Vital Signs Temp 98.2 F 11/26/19 07:45 Pulse 100 11/26/19 07:50 Resp 18 11/26/19 07:50 BP 103/60 11/26/19 07:45 Pulse Ox 93 11/26/19 07:50 11/25/19 11/26/19 11/26/19 22:59 06:59 14:59 Intake Total 490 / 1750 766.25 / 2516.25 360 / 360 Output Total 800 / 1100 1300 / 2400 300 / 300 Balance -310 / 650 -533.75 / 116.25 60 / 60 Weight last 48 hrs Weight 69.853 kg Physical Exam Const: COMMON NORMALS: no acute distress, patient oriented x3 and alert GENERAL APPEARANCE: cooperative and comfortable ORIENTATION/CONSCIOUSNESS: Yes awake HENMT: COMMON NORMALS: normocephalic, atraumatic, hearing grossly normal bilaterally and moist oral mucous membranes HEAD & SCALP: normocephalic and atraumatic Eye: COMMON NORMALS: Equal, round and reactive pupils present, EOMs intact bilaterally and conjunctivae normal CONJUNCTIVA: Yes conjunctivae normal PUPIL: Yes Equal, round and reactive pupils present Neck/C-Spine: COMMON NORMALS: full ROM GENERAL: Yes normal visual i nspection and Yes trachea midline Chest: CHEST: Yes Symmetrical chest wall rise Resp: COMMON NORMALS: normal respiratory effort, No retractions, No use of accessory muscles and clear to auscultation bilaterally EFFORT & INSPECTION: Yes able to speak in complete sentences, Yes symmetric chest movement and No tachypneic AUSCULTATION: clear to auscultation bilaterally OTHER: -on RA Cardio: COMMON NORMALS: regular rate, regular rhythm, S1 normal heart sound present, S2 normal heart sound present and No murmurs present (Cardio) RATE: regular rate RHYTHM: regular rhythm HEART SOUNDS: S1 normal heart sound present and S2 normal heart sound present GI: COMMON NORMALS: Normal to inspection, nondistended, normoactive bowel sounds present, Soft to palpation and non-tender PALPATION: Yes Soft to palpation : BLADDER/KIDNEY EXAM: No catheter in place Extremity: COMMON NORMALS: normal to inspection, full ROM, no clubbing, cyanosis or edema and no pedal edema NARRATIVE EXTREMITY EXAM: -R lateral hip: clean dressing in place, soft to palpation, no hematoma -Abductor pillow in place between both lower extremities -neurovascularly intact Neuro: COMMON NORMALS: patient oriented x3, moves all extremities, no focal motor deficits and no sensory deficits noted SENSORIUM/ORIENTATION: Yes alert Psych: COMMON NORMALS: mental status grossly normal, Normal thought process present, cooperative, normal affect and speech normal SPEECH: Yes normal speech THOUGHT PROCESS: Normal thought process present Skin: COMMON NORMALS: no rashes or lesions noted, no jaundice, no petechiae and no mottling GENERAL SKIN EXAM: no rashes or lesions noted Urinary Catheter Management^: Kelly: Cath Placed During This Visit: yes, but has since been removed by the nurse Urethral Indwelling: Yes Reason for Continuing Indwelling Catheter: Perioperative Use in Selected Surgeries Urinary Catheter Date of Insertion: 11/25/19 Urinary Catheter Time of Insertion: 00:43 Date Urinary Catheter Removed: 11/26/19 Time Urinary Catheter Discontinued: 06:07 Data : 11/26/19 04:23 11/26/19 04:23 Micro: Microbiology 11/25/19 01:20 MRSA Culture - Final Nose A&P Assessment and plan (1) Subcapital fracture of right hip: -noted displaced fracture of right femoral neck on imaging secondary to mechanical fall (tripped over fertilizer bags) -POD # 1, s/p right bipolar hip arthroplasty done earlier today by Dr. Valentino -EBL-100 mL; noted drop in H/H post-op (13.6->9.9), part of which is dilutional; continue to monitor H/H -Kelly catheter in place, anticipate removal tomorrow -pain control as needed -PT/OT evaluations appreciated -fall precautions -regular diet as tolerated -bowel regimen -IS Status: Acute Qualifiers: Encounter type: initial encounter Fracture type: closed Qualified Code(s): S72.011A - Unspecified intracapsular fracture of right femur, initial encounter for closed fracture (2) Hypertension: -VSS though low normal BP this AM; continue to monitor -continue oral antihypertensives; hold if hypotensive Status: Chronic Qualifiers: Hypertension type: essential hypertension Qualified Code(s): I10 - Essential (primary) hypertension (3) Depression: -resumed Zoloft Status: Chronic Qualifiers: Depression Type: unspecified Qualified Code(s): F32.9 - Major depressive disorder, single episode, unspecified (4) Leukocytosis: -noted leukocytosis with neutrophilic predominance; trending down -no infectious etiology: UA negative, CXR unremarkable, afebrile -continue to trend WBC Status: Acute Qualifiers: Leukocytosis type: unspecified Qualified Code(s): D72.829 - Elevated white blood cell count, unspecified Additional A&P Information -regular diet as tolerated -DVT ppx with SCDs/foot pumps, ASA 325 mg -Dispo: home with HH -Code status: FULL code Attestations Medical Necessity Statement*: Patient requires hospitalization for continued post-op care, including pain control, continued monitoring of hemoglobin and hemodynamic status. Time Spent in Patient Care: 16 - 35 minutes (>than 50% of time spent in counselling and/or direct pt care on unit) . 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
--- NOTE | 2019-11-26 16:35 | PM.PN ---
Subjective Subjective: Interval history: Patient complains of essentially no pain. She is doing very well. She feels she is ready for discharge home. I agree. The only concern is that she has had a slightly low blood pressure today. She is advised to hold her blood pressure medications until her blood pressure normalizes for her. Medications: Reviewed: Yes Medication Review Details: Patient did not require narcotic pain medications. Vitals/I&O/Wt Last Vital Signs Temp 98.5 F 11/26/19 16:00 Pulse 90 11/26/19 16:00 Resp 18 11/26/19 16:00 BP 111/69 11/26/19 16:00 Pulse Ox 96 11/26/19 16:00 11/26/19 11/26/19 11/26/19 06:59 14:59 22:59 Intake Total 766.25 / 2516.25 360 / 360 Output Total 1300 / 2400 1100 / 1100 Balance -533.75 / 116.25 -740 / -740 Weight last 48 hrs Weight 154 lb Physical Exam Const: COMMON NORMALS: no acute distress, average body habitus, patient oriented x3 and alert GENERAL APPEARANCE: cooperative and comfortable ORIENTATION/CONSCIOUSNESS: Yes awake HENMT: COMMON NORMALS: normocephalic and atraumatic HEAD & SCALP: normocephalic and atraumatic Eye: GENERAL EYE: appearance normal, both eyes and all related structures Chest: COMMONS NORMALS: normal inspection of the chest Resp: COMMON NORMALS: normal respiratory effort EFFORT & INSPECTION: Yes able to speak in complete sentences and Yes symmetric chest movement Extremity: GENERAL: Yes normal exam except as noted RIGHT LOWER EXTREMITY: Yes hip joint (There is minimal to no swelling.) Right hip: Yes inspection (There is slight ecchymosis in the area of the incision.), Yes palpation (Minimal tenderness to palpation.), Yes ROM (Not evaluated.), Yes neurovascular exam (Intact.) and Yes other (Patient is able to ambulate with minimal to no discomfort.) Neuro: COMMON NORMALS: patient oriented x3 SENSORIUM/ORIENTATION: Yes alert Psych: COMMON NORMALS: mental status grossly normal APPEARANCE: Yes grossly normal ATTITUDE: Yes calm and Yes engaged ATTENTION/CONCENTRATION: Yes attention grossly intact Skin: COMMON NORMALS: no rashes or lesions noted GENERAL SKIN EXAM: no rashes or lesions noted Urinary Catheter Management^: Kelly: Cath Placed During This Visit: yes, but has since been removed by the nurse Urethral Indwelling: Yes Reason for Continuing Indwelling Catheter: Perioperative Use in Selected Surgeries Urinary Catheter Date of Insertion: 11/25/19 Urinary Catheter Time of Insertion: 00:43 Date Urinary Catheter Removed: 11/26/19 Time Urinary Catheter Discontinued: 06:07 Data : 11/26/19 04:23 11/26/19 04:23 A&P Assessment and plan (1) Subcapital fracture of right hip: Patient fell at home with no complaints of dizziness or other reason for her fall other than a mechanical fall tripping over some fertilizer bags at her house. The patient presented to the emergency department with inability to ambulate and severe pain in the right lower extremity with any range of motion. Findings on x-ray included a displaced subcapital hip fracture. He was negative for any apparent pathology other than the hip fracture. The patient now is doing very well. She has not required narcotic pain medication. She is very comfortable and ready for discharge home. Home health has been arranged for her. Status: Acute Qualifiers: Encounter type: initial encounter Fracture type: closed Qualified Code(s): S72.011A - Unspecified intracapsular fracture of right femur, initial encounter for closed fracture Attestations Medical Necessity Statement*: Patient is ready for discharge to home. 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
--- NOTE | 2019-11-26 16:56 | PM.DCS ---
Discharge Providers Date of Admission: 11/24/19 23:25 Date of Discharge: November 26, 2019 Attending Provider at Admission: Zita Hagan MD Attending Provider at Discharge: Kym Swain MD Diagnoses at Discharge Discharge Diagnosis (1) Subcapital fracture of right hip: Status: Acute Problem details: -noted displaced fracture of right femoral neck on imaging secondary to mechanical fall (tripped over fertilizer bags) -POD # 1, s/p right bipolar hip arthroplasty done earlier today by Dr. Valentino -EBL-100 mL; noted drop in H/H post-op (13.6->9.9), part of which is dilutional; continue to monitor H/H -Kelly catheter in place, anticipate removal tomorrow -pain control as needed -PT/OT evaluations appreciated -fall precautions -regular diet as tolerated -bowel regimen -IS Qualifiers: Encounter type: initial encounter Fracture type: closed Qualified Code(s): S72.011A - Unspecified intracapsular fracture of right femur, initial encounter for closed fracture (2) Hypertension: Status: Chronic Problem details: -VSS; continue to monitor -continue oral antihypertensives; hold if hypotensive Qualifiers: Hypertension type: essential hypertension Qualified Code(s): I10 - Essential (primary) hypertension (3) Depression: Status: Chronic Problem details: -resumed Zoloft Qualifiers: Depression Type: unspecified Qualified Code(s): F32.9 - Major depressive disorder, single episode, unspecified (4) Leukocytosis: Status: Acute Problem details: -noted leukocytosis with neutrophilic predominance; trending down -no infectious etiology: UA negative, CXR unremarkable, afebrile -continue to trend WBC Qualifiers: Leukocytosis type: unspecified Qualified Code(s): D72.829 - Elevated white blood cell count, unspecified Reason for Visit Reason for Visit: Reason For Visit: R CERVICAL FEMORAL NECK FX Hospital Course Hospital Course: Patient was admitted to the medical surgical floor and orthopedics consulted secondary to displaced right femoral neck fracture. Dr. Valentino evaluated the patient and deemed her appropriate for surgical intervention. Patient had a right bipolar hip arthroplasty, uncomplicated and has done well post-op particularly in terms of activity level. She was noted to be somewhat hypotensive this morning though blood pressure has improved throughout the day and patient has consistently been asymptomatic. She had a noted drop in her hemoglobin postop from 13.3->9.9 with no noted hematoma or active bleeding, and part of this is dilutional. Ambulation with walker has been recommended by physical therapy, DME has been provided. Patient is to continue home health services which have been arranged. She would prefer to set up her own primary care physician as she recently moved to the area and would like to establish care at [place]. She is advised to seek medical attention immediately should she experience shortness of breath, chest pain, dizziness/lightheadedness, fall/syncope. Anticipate that she will continue to do well based on her motivation. She did have a Kelly catheter placed on initial admission in the ER, this was removed about 24 hours postop and she has been able to void independently without difficulty. She has been afebrile, not requiring oxygen support. She would like to be discharged home today and has been cleared for discharge home by Dr. Valentino. She is to follow-up on 12/04/2019 as scheduled. She is to continue DVT prophylaxis with full dose aspirin. Pain has been well controlled with oral analgesics. Discharge Summary: -Patient to establish primary care provider at [place] as soon as possible -Patient to follow-up with Dr. Valentino on 12/04/2019 Physical Exam Const: COMMON NORMALS: no acute distress, patient oriented x3 and alert GENERAL APPEARANCE: cooperative and comfortable ORIENTATION/CONSCIOUSNESS: Yes awake HENMT: COMMON NORMALS: normocephalic, atraumatic, hearing grossly normal bilaterally and moist oral mucous membranes HEAD & SCALP: normocephalic and atraumatic Eye: COMMON NORMALS: Equal, round and reactive pupils present, EOMs intact bilaterally and conjunctivae normal CONJUNCTIVA: Yes conjunctivae normal PUPIL: Yes Equal, round and reactive pupils present Neck/C-Spine: COMMON NORMALS: full ROM GENERAL: Yes normal visual inspection and Yes trachea midline Chest: CHEST: Yes Symmetrical chest wall rise Resp: COMMON NORMALS: normal respiratory effort, No retractions, No use of accessory muscles and clear to auscultation bilaterally EFFORT & INSPECTION: Yes able to speak in complete sentences, Yes symmetric chest movement and No tachypneic AUSCULTATION: clear to auscultation bilaterally OTHER: -on RA Cardio: COMMON NORMALS: regular rate, regular rhythm, S1 normal heart sound present, S2 normal heart sound present and No murmurs present (Cardio) RATE: regular rate RHYTHM: regular rhythm HEART SOUNDS: S1 normal heart sound present and S2 normal heart sound present GI: COMMON NORMALS: Normal to inspection, nondistended, normoactive bowel sounds present, Soft to palpation and non-tender PALPATION: Yes Soft to palpation : BLADDER/KIDNEY EXAM: No catheter in place Extremity: COMMON NORMALS: normal to inspection, full ROM, no clubbing, cyanosis or edema and no pedal edema NARRATIVE EXTREMITY EXAM: -R lateral hip: clean dressing in place, soft to palpation, no hematoma -Abductor pillow in place between both lower extremities -neurovascularly intact Neuro: COMMON NORMALS: patient oriented x3, moves all extremities, no focal motor deficits and no sensory deficits noted SENSORIUM/ORIENTATION: Yes alert Psych: COMMON NORMALS: mental status grossly normal, Normal thought process present, cooperative, normal affect and speech normal SPEECH: Yes normal speech THOUGHT PROCESS: Normal thought process present Skin: COMMON NORMALS: no rashes or lesions noted, no jaundice, no petechiae and no mottling GENERAL SKIN EXAM: no rashes or lesions noted Urinary Catheter Management^: Kelly: Cath Placed During This Visit: yes, but has since been removed by the nurse Urethral Indwelling: Yes Reason for Continuing Indwelling Catheter: Perioperative Use in Selected Surgeries Urinary Catheter Date of Insertion: 11/25/19 Urinary Catheter Time of Insertion: 00:43 Date Urinary Catheter Removed: 11/26/19 Time Urinary Catheter Discontinued: 06:07 Discharge Data Data Completed and Pending: Completed Studies During Hospitalization Category Date Time Status CT hip RT wo con* [id number] Urgent Cat Scan 11/24/19 23:41 Completed XR chest 1V yousif ble [id number] Stat Exams 11/24/19 22:56 Completed XR hip RT 2-3V wo /w pel* [id number] Stat Exams 11/24/19 22:10 Completed XR pelvis 1-2V* 7 2170 Routine Exams 11/25/19 11:03 Completed Pending at discharge Category Date Time Status Hemoglobin and He matocrit AM LABS Lab 11/27/19 04:00 Ordered Pathology: Surgic al [PTH] Routine Pth 11/25/19 11:26 Received Labs from last 24 hours 11/26/19 11/26/19 04:23 04:23 WBC 10.6 H RBC 3.21 L Hgb 9.9 L Hct 31.0 L MCV 96.6 MCH 30.8 MCHC 31.9 RDW 13.6 Plt Count 299 MPV 9.7 Neut % (Auto) 67.8 Lymph % (Auto) 21.8 [place] % (Auto) 9.4 Eos % (Auto) 0.3 Baso % (Auto) 0.2 Neut # (Auto) 7.2 Lymph # (Auto) 2.3 [place] # (Auto) 1.0 H Eos # (Auto) 0.0 Baso # (Auto) 0.0 Nucleated RBC % (a uto) 0 Nucleated RBCs # 0.0 Sodium 141 Potassium 3.7 Chloride 105 Carbon Dioxide 26 Anion Gap 13.7 BUN 9 Creatinine 0.5 GFR Calculation 128.1 Glucose 107 Calculated Osmolal ity 288 Calcium 8.1 L Vitals: Last Vital Signs Temp 98.5 F 11/26/19 16:00 Pulse 90 11/26/19 16:00 Resp 18 11/26/19 16:00 BP 111/69 11/26/19 16:00 Pulse Ox 96 11/26/19 16:00 Discharge Plan Discharge Patient Disposition: Home Health Service Condition: Stable Prescriptions: New celecoxib 200 mg Capsule 200 mg PO Q12H Qty: 60 RF: 0 acetaminophen 500 mg Tablet 1,000 mg PO Q8H 15 Days Qty: 90 RF: 0 aspirin 325 mg Tablet,Delayed Release (Dr/Ec) 325 mg PO DAILY Qty: 30 RF: 0 Continued sertraline 50 mg PO DAILY RF: 0 cetirizine 10 mg PO DAILY RF: 0 Advair HFA 1 puff inhalation DAILY RF: 0 Held lisinopril-hydrochlorothiazide 10 mg PO DAILY RF: 0 Hold Instructions: Resume on 11/27/19. Please check your blood pressure as advised and hold for low blood pressure Discharge Orders: Discharge Order (Routine); Ordered 11/26/19 Ordered By: Kavita Valentino Other Ambulatory Orders: DME: Walker (Order) Location: None Selected Ordered By: Kavita Valentino [place] [facility] [place] [facility] [place] [facility] [place] [facility] [place] [place]Outside] Kavita Valentino MD [Physician] - 12/04/19 8:15 am (Please call for appointment) Discharge Diet: Advance as tolerated Discharge Activity: Limit activity as instructed, Use walker/crutches as instructed and As per PT/OT instructions Activity Restrictions/Additional Instructions: -Posterior hip precautions. You may remove the dressing and change it to clear dressing PRN. -Please seek medical attention immediately if experiencing worsening shortness of breath, chest pain, lightheadedness/dizziness, loss of consciousness/fall Discharge Attestations Time Spent in Discharge Care*: greater than 30 min Specific Discharge Activities: Specific discharge activities: educating patient, discussing with pcp/other providers, discussing with pillowcase folder/social workers/dc planners, documenting/other paperwork and evaluating patient/reviewing data Status at Discharge: Cognitive status at discharge: cognitively intact, Behavioral status at discharge: cooperative, Functional status at discharge: uses cane/walker Overall status at discharge: patient is progressing back to baseline Quality Metrics Clinical Quality Measures During this hospital stay, did patient experience: None Coding Level of Care Code Acute 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
== END 2019-11-26 18:11 | disposition home health service (06) | DRG 470 ==
LOC: ER 11-25 00:07 → MEDSURG 11-25 00:08
PROVIDERS: Nurse Practitioner Family; Specialist; Admitting Provider Student in an Organized Health Care Education/Training Program; Visit Provider Family Medicine
PROC: 0SRR0JZ Replacement of Right Hip Joint, Femoral Surface with Synthetic Substitute, Open Approach (ICD-10-PCS; CPT 27125; principal; 2019-11-25 08:45)
DX: S72.011A Unspecified intracapsular fracture of right femur, initial encounter for closed fracture (principal); W01.0XXA Fall on same level from slipping, tripping and stumbling without subsequent striking against object, initial encounter; J45.909 Unspecified asthma, uncomplicated; I10 Essential (primary) hypertension; F32.9 Major depressive disorder, single episode, unspecified
CPT/HCPCS: 12345; 36415; 51702; 71045; 72170; 73502; 73700; 80048; 80053; 81003; 85025; 87641; 88304; 93005; 93010; 96375; 97161; 97165; 97530; 99284; C1776; J0131; J0690; J1100; J2001; J2270; J2405; J2704; J3010; J3370; J3490; J7030

== ENCOUNTER → 2019-12-04 08:10 | Outpatient (BNVA) | payer OTHER, SELFPAY | PROVIDERS: Visit Provider Specialist | DX: S72.011A Unspecified intracapsular fracture of right femur, initial encounter for closed fracture (principal); Z96.641 Presence of right artificial hip joint; X58.XXXA Exposure to other specified factors, initial encounter | CPT/HCPCS: 73502 ==

== ENCOUNTER → 2020-01-02 08:16 | Outpatient (BNVA) | payer OTHER, SELFPAY | PROVIDERS: Visit Provider Specialist | DX: S72.011A Unspecified intracapsular fracture of right femur, initial encounter for closed fracture (principal); Z96.641 Presence of right artificial hip joint; X58.XXXA Exposure to other specified factors, initial encounter | CPT/HCPCS: 73502 ==

== ENCOUNTER 2021-10-23 09:04 | Emergency (ER) | payer OTHER, SELFPAY ==
[2021-10-23 09:43] VITALS: BP 189/107; PULSE 104; RESP 23; O2SAT 96; BMI 24.7
--- NOTE | 2021-10-23 09:49 | XRR_ITS ---
PROCEDURE INFORMATION: Exam: XR Chest Exam date and time: 10/23/2021 10:10 AM Age: 56 years old Clinical indication: Cough TECHNIQUE: Imaging protocol: XR of the chest. Views: 1 view. COMPARISON: CR XR chest 1V portable [id number] 11/24/2019 11:21 PM FINDINGS: Lungs: No focal airspace disease. Pleural spaces: Unremarkable. No pleural effusion. No pneumothorax. Heart/Mediastinum: Cardiomediastinal silhouette is within normal limits. Bones/joints: Unremarkable. XR/XR chest 1V portable [id number] IMPRESSION: No acute cardiopulmonary abnormality.
--- NOTE | 2021-10-23 09:56 | W.ED.URI ---
HPI - URI/Sore Throat General: Chief Complaint: Upper Respiratory Infection Stated Complaint: Chest Pain, coughing Time Seen by Provider: 10/23/21 09:49 Source: patient Mode of arrival: ambulatory Limitations: no limitations History of Present Illness: Patient is a nice 56-year-old female with a history of asthma here for complaints of a chest cold . Patient tells me approximately a week ago she had nasal congestion/stuffiness/pressure and states symptoms have now moved down in my chest . She has having a mildly productive cough. She feels like her symptoms have now worsened her asthma. Patient tells me she takes albuterol nebulizers as well as a Symbicort inhaler. She does not endorse feeling short of breath. She is not having any chest pain. No fevers. MD elicited complaint: cough Pertinent past history: asthma Onset (ago): day(s) Consistency: constant Severity: moderate Description of mucous: clear Able to tolerate fluids by mouth: Yes Relieving factors: other (nebulizer/albuterol) Associated symptoms: Deny abdominal pain, chills, chest pain, diarrhea, fever(s), headache(s), nasal congestion, nausea or vomiting Treatments prior to arrival: none Review of Systems Const: Denies: fever(s), chills, body aches, fatigue or malaise ENMT: Denies: throat pain, odynophagia, nasal discharge or nasal congestion Card: Denies: chest pain, palpitations, irregular heart rhythm, edema, swelling of feet/ankles, lightheadedness, syncope, pre-syncope or orthopnea Resp: Reports: productive cough, wheezing and chest congestion; Denies: dyspnea or hemoptysis GI: Denies: abdominal pain, nausea, vomiting or diarrhea Musc: Denies: neck pain, extremity pain, extremity swelling or joint pain Skin/Breast: Denies: rash Neuro: Denies: headache(s) PFSH ED PFSH: Medical History Asthma Depression -resumed Zoloft Hypertension -VSS; continue to monitor -continue oral antihypertensives; hold if hypotensive Social History Smoking and tobacco status: never smoked Physical Exam Const: COMMON NORMALS: no acute distress, average body habitus, patient oriented x3, no limitations, healthy appearing, alert and well nourished GENERAL APPEARANCE: cooperative ORIENTATION/CONSCIOUSNESS: Yes awake, Yes oriented to person, Yes oriented to place and Yes oriented to time Neck/C-Spine: COMMON NORMALS: full ROM, no lymphadenopathy and no meningeal signs GENERAL: Yes normal visual inspection Chest: COMMONS NORMALS: normal inspection of the chest and normal palpation of entire chest wall Resp: COMMON NORMALS: normal respiratory effort, No retractions and No use of accessory muscles EFFORT & INSPECTION: Yes able to speak in complete sentences AUSCULTATION: rhonchi throughout and wheezes expiratory wheezes and scattered wheezes Cardio: COMMON NORMALS: regular rate and regular rhythm RATE: regular rate and tachycardic (after coughing) RHYTHM: regular rhythm Extremity: COMMON NORMALS: normal to inspection, capillary refill normal, no clubbing, cyanosis or edema and no calf tenderness Neuro: ARMIN COMA SCALE: document GCS findings Henderson coma scale eye opening: Spontaneous Henderson coma scale verbal response: Orientated Armin coma scale motor response: Obey commands Armin coma scale total score: 15 COMMON NORMALS: patient oriented x3 SENSORIUM/ORIENTATION: Yes alert, Yes oriented to person, Yes oriented to place and Yes oriented to time MENINGEAL SIGNS: Yes no meningeal signs Skin: COMMON NORMALS: no rashes or lesions noted GENERAL SKIN EXAM: no rashes or lesions noted Course Vital Signs: Vital signs: Vital Signs Temperature 98.1 F 10/23/21 10:06 Pulse Rate 95 10/23/21 10:55 Respiratory Rate 23 H 10/23/21 10:06 Blood Pressure 158/99 10/23/21 10:55 Pulse Oximetry 99 10/23/21 10:55 MDM - URI/Sore Throat Medical Decision Making Offered patient IM/IV steroids and breathing treatment here but she declines. Reports when she has had similar symptoms previously, oral steroids/abx seem to work well. CXR normal. Vital signs stable. She does get tachycardic with coughing. Will place patient on Doxycycline and steroid taper. Recommend close follow up with PCP. Return to ED precautions verbally discussed with patient. Lab Data Radiology Impressions Chest X-Ray 10/23/21 09:49 IMPRESSION: No acute cardiopulmonary abnormality. Discharge Plan Discharge Patient Disposition: Home Clinical Impression: Asthma with bronchitis Condition: Stable Prescriptions: New prednisone 10 mg tablet 60 mg PO DAILY 8 Days Qty: 32 0RF Rx Instructions: Take 6 tabs days 1-2, 5 tabs days 3-4, 4 tabs day 5, 3 tabs day 6, 2 tabs day 7, 1 tab day 8 doxycycline monohydrate 100 mg capsule 100 mg PO Q12H 7 Days Qty: 14 0RF No Action sertraline 50 mg PO DAILY 0RF cetirizine 10 mg PO DAILY 0RF lisinopril-hydrochlorothiazide 10 mg PO DAILY 0RF Hold Instructions: Resume on 11/27/19. Please check your blood pressure as advised and hold for low blood pressure Advair HFA 1 puff inhalation DAILY 0RF celecoxib 200 mg Capsule 200 mg PO Q12H Qty: 60 0RF aspirin 325 mg Tablet,Delayed Release (Dr/Ec) 325 mg PO DAILY Qty: 30 0RF Discharge Orders: Discharge ED (Routine); Ordered 10/23/21 Ordered By: Maricel Myers Activity Restrictions/Additional Instructions: Continue your nebulizer albuterol and Symbicort as needed/scheduled. Coding Level of Care Code ED English Language Learner Tutor for Ashley Fwd Exam Comprehensive
[2021-10-23 10:06] VITALS: BP 189/107; PULSE 104; RESP 23; TEMP 36.7; O2SAT 96
--- NOTE | 2021-10-23 10:14 | ECG_ITS ---
[facility] Test Date: 2021-10-23 Pat Name: Patti Saleh Department: Room: Gender: Female [employer]: : 1965 Requested By: Maricel Myers Order Number: [id number] Nayeli MD: Aaron Yeager M.D. Measurements Intervals [place] Rate: 97 P: 68 CO: 158 QRS: 5 QRSD: 86 T: 53 QT: 318 QTc: 405 Interpretive Statements SINUS RHYTHM Compared to ECG 11/24/2019 23:20:08 No significant changes Electronically Signed On 10-24-2021 19:35:23 CDT by Aaron Yeager M.D. [id number]
[2021-10-23 10:55] VITALS: BP 158/99; PULSE 95; O2SAT 99
== END 2021-10-23 10:56 | disposition home or self-care (01) ==
PROVIDERS: Emergency Provider Physician Assistant
DX: J45.909 Unspecified asthma, uncomplicated (principal)
CPT/HCPCS: 71045; 93005; 99282

== ENCOUNTER 2022-11-23 09:45 | Emergency (ER) | payer OTHER, SELFPAY ==
[2022-11-23 09:50] VITALS: BP 116/73; PULSE 93; RESP 16; TEMP 36.6; O2SAT 96; BMI 26.3
--- NOTE | 2022-11-23 10:06 | ED_ITS ---
HPI - Extremity Injury (Lower) General: Chief Complaint: Extremity Injury, Lower Stated Complaint: right foot pain Time Seen by Provider: 11/23/22 09:48 Source: patient Mode of arrival: wheelchair Limitations: no limitations History of Present Illness: Patient is a nice 57-year-old female presents to ED today with complaint of right foot pain. She states approximately 2.5 weeks ago she believes she slightly rolled her foot and ankle. She states she never experienced any type of immediate discomfort but over that time. Progressively began developing pain to her ankle and foot region. She states over the past several days pain has seemed to localize to the right heel. She states she is not able to bear weight on the heel secondary to discomfort. She has not noticed any swelling or redne ss to the area. She has no prior foot or ankle injuries. MD complaint: foot injury Onset (ago): week(s) Place: work Severity: moderate Relieving factors: immobilization Exacerbating factors: weight bearing and palpation Associated symptoms: Reports inability to bear weight Other symptoms: none Review of Systems Musc: Reports: extremity pain (R foot); Denies: extremity swelling, joint pain, joint swelling, joint redness, joint warmth or limited range of motion Skin/Breast: Reports: other (no redness/skin lesions to R foot/heel) Neuro: Denies: numbness in extremities or sensory changes [facility] ED PFSH: Medical History (Updated 11/23/22 @ 11:00 by RAJAN Nixon) Asthma Depression -resumed Zoloft Hypertension -VSS; continue to monitor -continue oral antihypertensives; hold if hypotensive Social History Smoking and tobacco status: never smoked Physical Exam Const: COMMON NORMALS: no acute distress, average body habitus, patient oriented x3, no limitations, healthy appearing, alert and well nourished Extremity: COMMON NORMALS: normal to inspection, full ROM, capillary refill normal, no joint enlargement, no clubbing, cyanosis or edema, no calf tenderness and no pedal edema GENERAL: Yes normal exam except as noted RIGHT LOWER EXTREMITY: Yes foot & digits (TTP R plantar heel surface; no tenderness to Achilles tendon) Right foot and digits: Yes palpation (no tenderness throughout plantar fascia), Yes ROM (normal) and Yes neurovascular exam (normal) Neuro: COMMON NORMALS: patient oriented x3, moves all extremities, no focal motor deficits and no sensory deficits noted SENSORIUM/ORIENTATION: Yes alert Course Vital Signs: Vital signs: Vital Signs Temperature 97.9 F 11/23/22 09:50 Pulse Rate 93 11/23/22 09:50 Respiratory Rate 16 11/23/22 09:50 Blood Pressure 116/73 11/23/22 09:50 Pulse Oximetry 96 11/23/22 09:50 Oxygen Delivery Me thod Room Air 11/23/22 09:50 MDM - Extremity Injury (Lower) Medical Decision Making XR showing no acute findings. Patient will be provided crutches so she may use as needed. Recommend heel cushioning and padded shoes. We will have her follow- up with podiatry for further evaluation and treatment. She has been taking 600 mg ibuprofen every 6-8 hours. Recommend she continue this. Lab Data Radiology Impressions Foot X-Ray 11/23/22 10:09 IMPRESSION: No acute findings. Discharge Plan Discharge Patient Disposition: Home Clinical Impression: Pain of right heel Condition: Stable Prescriptions: No Action sertraline 50 mg PO DAILY cetirizine 10 mg PO DAILY lisinopril-hydrochlorothiazide 10 mg PO DAILY Hold Instructions: Resume on 11/27/19. Please check your blood pressure as advised and hold for low blood pressure Advair HFA 1 puff inhalation DAILY celecoxib 200 mg Capsule 200 mg PO Q12H Qty: 60 0RF aspirin 325 mg Tablet,Delayed Release (Dr/Ec) 325 mg PO DAILY Qty: 30 0RF Discharge Orders: Discharge ED (Routine); Ordered 11/23/22 Ordered By: Maricel Myers Referrals: NOT ON FILE,DOCTOR [Primary Care Provider] - Activity Restrictions/Additional Instructions: As we discussed I would recommend applying some type of cushion or supportive padding to the heel as well as padded shoes. You have been provided crutches for no weightbearing as needed. Continue anti-inflammatories. I have placed a referral to get you set up with podiatry for further evaluation and treatment. Coding Level of Care Code ED Electron Microprobe Operator for Ashley Sosa
--- NOTE | 2022-11-23 10:09 | XRR_ITS ---
PROCEDURE INFORMATION: Exam: XR Right Foot Exam date and time: 11/23/2022 10:16 AM Age: 57 years old Clinical indication: Right; Patient HX: Stepped wrong, heel pain; Additional info: Pain/poss injury; Heel pain TECHNIQUE: Imaging protocol: Radiologic exam of the right foot. Views: 3 or more views. COMPARISON: No relevant prior studies available. FINDINGS: Bones/joints: Normal. Soft tissues: Normal. XR/XR foot RT min 3V* 62080 IMPRESSION: No acute findings.
--- NOTE | 2022-11-23 11:30 | PC.NURSE ---
Addendum entered by Kailyn Moya 12/08/22 10:13: Patient had a follow up appointment scheduled with ortho - patient did attend appointment. Addendum entered by Kailyn Moya 11/29/22 11:27: Patient has a follow up appointment scheduled for Wednesday, December 07, 2022 at 9:[address] Lozano at ortho. Addendum entered by Piper Gonzalez RN 11/23/22 15:28: 12/07/[address] Lozano/offered sooner apt but pt stated she will be going out of town. Thank you Original Note: Pt seen in the ED and referred to Podiatry for heel pain. [facility] sent message to call pt with an appt.
--- NOTE | 2022-12-01 15:06 | DCPLANNER ---
TCM called patient due to no primary care physician - no answer at this time.
== END 2022-11-23 11:09 | disposition home or self-care (01) ==
PROVIDERS: Emergency Provider Physician Assistant
DX: M79.671 Pain in right foot (principal); Z79.82 Long term (current) use of aspirin; I10 Essential (primary) hypertension
CPT/HCPCS: 73630; 99283; E0114